=== PATIENT | female | born 1955 | race Caucasian/White ===

== ENCOUNTER 2021-10-07 10:36 | Day surgery (SDC) | payer MEDICARE, OTHER ==
[~2021-10-07 10:36] MED LIST: Lactated Ringers 1,000 ML IV PRN; Sodium Chloride 0.9% 10 ML Syringe FLUSH PRN
[2021-10-07] MEDS ORDERED: fentaNYL 100 MCG/2 ML SDV IV ONE (10:37)
[2021-10-07] MEDS ORDERED: Midazolam 1 MG/ML 2 ML SDV IV ONE (10:37)
[2021-10-07] MEDS ORDERED: acetaZOLAMIDE 500 MG Cap.ER PO ONE (12:30)
[2021-10-07 13:06] VITALS: BP 159/95; PULSE 81
--- NOTE | 2021-10-07 14:15 | OR ---
DATE OF OPERATION: 10/07/2021 SURGEON: Svetlana Ortez MD PREOPERATIVE DIAGNOSIS: Visually significant cataract, right eye. POSTOPERATIVE DIAGNOSIS: Visually significant cataract, right eye. PROCEDURES PERFORMED: Phacoemulsification with intraocular lens placement, right eye. ASSISTANTS: None. ANESTHESIA: Local with sedation. COMPLICATIONS: None. BLOOD LOSS: None. IMPLANTS: Pre-loaded DCB00 22.5 diopter lens implanted. CDE: 3.53. DESCRIPTION OF PROCEDURE: After risks and benefits were reviewed with the patient, consent was obtained in the preoperative area, and the operative eye was marked with a surgical pen. In the preoperative area, a pledget was used to dilate the pupil consisting of a mixture of phenylephrine 10%, cyclopentolate 2%, moxifloxacin 0.5%, and bupivacaine 0.75%. The patient was taken to the operating room, where a time-out was performed, and the patient was placed under monitored anesthesia care. Topical tetracaine was used for anesthesia. The operative eye was prepped and draped for ophthalmic surgery, and the microscope was brought into position and focused. A paracentesis incision was made, followed by injection of preservative-free 1% lidocaine into the anterior chamber, followed by injection of Viscoat into the anterior chamber. A microkeratome blade was used to make a corneal limbal incision temporally. A cystotome was used to make the beginning of the capsulorrhexis, which was carried around 360 degrees in a curvilinear fashion using Utrata forceps. A Gagnon cannula with BSS was used to hydrodissect and hydrodelineate the nucleus. The nucleus was removed in a divide and conquer manner using phacoemulsification. Irrigation and aspiration were used to remove the remaining cortical material. Provisc was used to inflate the capsular bag, and a pre-loaded DCB00 22.5 diopter lens, serial number [id number] was injected into the capsular bag. A Sinskey hook was used to position and center the lens. Next, irrigation and aspiration was used to remove any remaining viscoelastic and cortical material from the anterior chamber. BSS on a cannula was used to inflate the anterior chamber and hydrate the wound. The wound was checked and found to be watertight. 1 mg of Moxifloxacin was injected into the anterior chamber. Drapes were removed and the eye was cleaned. A drop of brimonidine 0.2% and a drop of TobraDex was placed. The eye was shielded, and the patient was taken to the recovery room in stable condition. /[id number] LUCY/SHARIFA
== END 2021-10-07 13:28 | disposition home or self-care (01) ==
LOC: FB.SDS 10:36
PROVIDERS: ATTEND Ophthalmology
DX: H25.813 Combined forms of age-related cataract, bilateral (principal); H04.123 Dry eye syndrome of bilateral lacrimal glands; H43.813 Vitreous degeneration, bilateral; Z79.899 Other long term (current) drug therapy; Z98.890 Other specified postprocedural states
CPT/HCPCS: 00142-QZ; A9270-GY; J2250; J3010; J7120; V2632

== ENCOUNTER 2021-10-21 06:48 | Day surgery (SDC) | payer MEDICARE ==
[~2021-10-21 06:48] MED LIST changes: -Lactated Ringers 1,000 ML IV PRN; -Sodium Chloride 0.9% 10 ML Syringe FLUSH PRN; +acetaZOLAMIDE 500 MG Cap.ER PO ONE
[2021-10-21] MEDS ORDERED: fentaNYL 100 MCG/2 ML SDV IV ONE (06:49)
[2021-10-21] MEDS ORDERED: Midazolam 1 MG/ML 2 ML SDV IV ONE (06:49)
[2021-10-21] MEDS: Sodium Chloride 0.9% 10 ML Syringe FLUSH PRN (07:45)
[2021-10-21] MEDS: Lactated Ringers 1,000 ML IV PRN (07:45)
[2021-10-21] MEDS: acetaZOLAMIDE 500 MG Cap.ER PO ONE (09:22)
--- NOTE | 2021-10-21 12:06 | OR ---
DATE OF OPERATION: 10/21/2021 SURGEON: Svetlana Ortez MD PREOPERATIVE DIAGNOSIS: Visually significant cataract, left eye. POSTOPERATIVE DIAGNOSIS: Visually significant cataract, left eye. PROCEDURES PERFORMED: Phacoemulsification with intraocular lens placement, left eye. ASSISTANTS: None. ANESTHESIA: Local with sedation. COMPLICATIONS: None. BLOOD LOSS: None. IMPLANTS: A pre-loaded DCB00 23.0 diopter lens implanted. CDE: 2.63. DESCRIPTION OF PROCEDURE: After risks and benefits were reviewed with the patient, consent was obtained in the preoperative area, and the operative eye was marked with a surgical pen. In the preoperative area, a pledget was used to dilate the pupil consisting of a mixture of phenylephrine 10%, cyclopentolate 2%, moxifloxacin 0.5%, and bupivacaine 0.75%. The patient was taken to the operating room, where a time-out was performed, and the patient was placed under monitored anesthesia care. Topical tetracaine was used for anesthesia. The operative eye was prepped and draped for ophthalmic surgery, and the microscope was brought into position and focused. A paracentesis incision was made, followed by injection of preservative-free 1% lidocaine into the anterior chamber, followed by injection of Viscoat into the anterior chamber. A microkeratome blade was used to make a corneal limbal incision temporally. A cystotome was used to make the beginning of the capsulorrhexis, which was carried around 360 degrees in a curvilinear fashion using Utrata forceps. A Gagnon cannula with BSS was used to hydrodissect and hydrodelineate the nucleus. The nucleus was removed in a divide and conquer manner using phacoemulsification. Irrigation and aspiration were used to remove the remaining cortical material. Provisc was used to inflate the capsular bag, and a pre-loaded DCB00 23.0 diopter lens, serial number [id number] was injected into the capsular bag. A Sinskey hook was used to position and center the lens. Next, irrigation and aspiration was used to remove any remaining viscoelastic and cortical material from the anterior chamber. BSS on a cannula was used to inflate the anterior chamber and hydrate the wound. The wound was checked and found to be watertight. 1 mg of Moxifloxacin was injected into the anterior chamber. Drapes were removed and the eye was cleaned. A drop of brimonidine 0.2% and a drop of TobraDex was placed. The eye was shielded, and the patient was taken to the recovery room in stable condition. /[id number] LUCY/SHARIFA
[2021-10-21 12:56] VITALS: BP 158/89; PULSE 74
== END 2021-10-21 09:40 | disposition home or self-care (01) ==
LOC: FB.SDS 06:48
PROVIDERS: ATTEND Ophthalmology
DX: H25.813 Combined forms of age-related cataract, bilateral (principal); H04.123 Dry eye syndrome of bilateral lacrimal glands; H43.813 Vitreous degeneration, bilateral; Z79.899 Other long term (current) drug therapy; Z98.890 Other specified postprocedural states
CPT/HCPCS: 00142-QZ; A9270-GY; J2250; J3010; J7120; V2632

== ENCOUNTER 2022-04-08 06:19 | Day surgery (SDC) | payer MEDICARE ==
[~2022-04-08 06:19] MED LIST changes: +Lactated Ringers 1,000 ML IV SCH; +Sodium Chloride 0.9% 10 ML Syringe FLUSH PRN; -acetaZOLAMIDE 500 MG Cap.ER PO ONE
[2022-04-08] MEDS ORDERED: Propofol 200 MG/20 ML SDV IV ONE (06:20)
[2022-04-08] MEDS ORDERED: Ketorolac 30 MG/ML SDV IVPUSH ONE (06:20)
[2022-04-08] MEDS ORDERED: Lidocaine 2% 100 MG/5 ML Syringe IVPUSH ONE (06:20)
[2022-04-08] MEDS ORDERED: Glycopyrrolate 0.2 MG/ML 5 ML MDV IV ONE (06:20)
[2022-04-08] MEDS ORDERED: Ketamine 500 mg/10 ML MDV IV ONE (06:20)
[2022-04-08] MEDS ORDERED: Dexmedetomidine 200 MCG/2 ML SDV IV ONE (06:20)
[2022-04-08] MEDS ORDERED: Phenylephrine 0.5% Nasal Spray 15 ML Bot NAS ONE (06:20)
[2022-04-08] MEDS ORDERED: Midazolam 1 MG/ML 2 ML SDV IV ONE (06:20)
[2022-04-08] MEDS ORDERED: Ondansetron 4 MG/2 ML SDV IVPUSH ONE (06:20)
[2022-04-08] MEDS ORDERED: ceFAZolin 2 GM in Premix Bag 1 BAG IV ONE (07:30)
[2022-04-08] MEDS ORDERED: Lidocaine 1% with EPINEPHrine 1:100,000 20 ML MDV INJECT ONE (08:06)
[2022-04-08] MEDS ORDERED: EPINEPHrine 1 MG/ML SDV ONE (08:06)
[2022-04-08] MEDS ORDERED: Lidocaine 1% 20 ML MDV INJECT ONE (08:06)
[2022-04-08] MEDS ORDERED: Sodium Bicarbonate 8.4% 50 MEQ/50 ML Syringe ONE (08:06)
[2022-04-08] MEDS ORDERED: Bacitracin/Neomycin/Polymyxin B Oint 28.4 GM Tube TOP ONE (09:25)
[2022-04-08 12:31] VITALS: BP 124/71; PULSE 70
== END 2022-04-08 11:22 | disposition home or self-care (01) ==
LOC: FB.SDS 06:19
PROVIDERS: ATTEND Surgery
DX: C44.519 Basal cell carcinoma of skin of other part of trunk (principal); Z79.899 Other long term (current) drug therapy; Z98.890 Other specified postprocedural states; E66.9 Obesity, unspecified; Z68.37 Body mass index [BMI] 37.0-37.9, adult
CPT/HCPCS: 00400-QZ; 82947; 88305; A9270-GY; J0171; J0690; J1885; J2250; J2405; J2704; J3490; J7120